=== PATIENT | male | born 1930 | race Caucasian/White ===

== ENCOUNTER 2019-09-21 12:11 | Outpatient (CLI) | payer MEDICARE ==
--- NOTE | 2019-09-21 14:02 | CT ---
CT chest noncontrast HISTORY: Asthma stenosis. Dyspnea. FINDINGS: Scattered mild areas of dystrophic calcifications associated with the pleura of each hemith orax. Mild peripheral interstitial thickening. No lobar consolidation or pleural fluid. Centered within the lateral aspect of the right upper lobe is an oval soft tissue density mass with s ubtle spiculated periphery. It measures up to 1.3 cm x 1.0 cm greatest diameters on the axial images. Within the superior segment right lower lobe, an oval 0.8 cm noncalcified nodule is present. Lack of contrast limits evaluation of the soft tissues. There is calcification within the coronary ar teries and other arterial structures. Nonenlarged, 1.6 cm precarinal lymph node is apparent. Inferior most images show calcified granulomata of the spleen. Small cyst in the left liver lobe. Hyp erdense stones in the dependent portion of the gallbladder lumen. IMPRESSION: Right lung nodules, measuring up to 1.3 cm greatest diameter. Metastatic disease is suspe cted. Lesions could be evaluated with radionucleotide PET scan hypermetabolic activity. Asbestos related pleural disease. Atherosclerosis. Cholelithiasis.
== END 2019-09-21 12:12 | disposition home or self-care (01) ==
LOC: BICCT 12:11
PROVIDERS: ATTEND Family Medicine
DX: I25.10 Atherosclerotic heart disease of native coronary artery without angina pectoris (principal); R09.89 Other specified symptoms and signs involving the circulatory and respiratory systems; I25.5 Ischemic cardiomyopathy; R91.8 Other nonspecific abnormal finding of lung field; K80.20 Calculus of gallbladder without cholecystitis without obstruction; J92.0 Pleural plaque with presence of asbestos
CPT/HCPCS: 71250

== ENCOUNTER 2020-01-26 08:50 | Outpatient (CLI) | payer MEDICARE ==
--- NOTE | 2020-01-26 10:33 | CT ---
CT THORAX NONCONTRAST: DATE: 01/26/2020 HISTORY: 89-year-old male follow-up pulmonary nodules. COMPARISON: 09/21/2019 FINDINGS: The 0.7 x 0.2 x 0.5 cm noncalcified pulmonary nodule in the superior segment of the right lower lobe, is demonstrated on sagittal reconstructions to have a craniocaudally flattened configuration, and is apparently along an accessory fissure (sagittal image 79 of 105, series 6; axial image 67 of 167, series 3), consistent with a benign fissural pulmonary lymph node. In the anterior segment of the right upper lobe, the approximately 1 x 1 x 1.3 cm noncalcified pulmon jeffrey nodule with irregular margins, is unchanged. No new pulmonary nodules. Scattered chronic mild-moderate subpleural reticular densities throughout the upper, mid, and lower l alexander zones. Multiple calcified pleural plaques bilaterally due to prior asbestos exposure. No consolidation, pulm onary edema, or pneumothorax. Trachea and bilateral major bronchi are diffusely mildly ectatic. 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 Mildly elevated right hemidiaphragm. Moderately low attenuation 1.5 x 1 cm hepatic lesion in left lobe of liver, unchanged. 4 cm round exophytic cystic lesion protruding from upper pole of right kidney. This was not included on previous CT. Otherwise no interval change overall. Coronary atherosclerotic disease due to calcified coronary lesion. No thoracic aortic aneurysm. Nonspecific mildly enlarged mediastinal lymph nodes. IMPRESSION: 1) the lobular 13 mm right upper lobe pulmonary nodule is unchanged since 09/21/2019. Primary lung can cer is a possibility. Recommend PET scan. 2) the 7 mm pulmonary nodule in the superior segment of the right lower lobe is a benign intrapulmona ry lymph node. 3) asbestos related pleural disease
== END 2020-01-26 08:51 | disposition home or self-care (01) ==
LOC: BICCT 08:50
PROVIDERS: ATTEND Internal Medicine Critical Care Medicine
DX: R91.1 Solitary pulmonary nodule (principal); J61 Pneumoconiosis due to asbestos and other mineral fibers
CPT/HCPCS: 71250

== ENCOUNTER 2020-07-21 08:56 | Emergency (ER) | payer MEDICARE ==
[2020-07-21] MEDS ORDERED: Boostrix 0.5 ML (Tdap) VIAL ONE (09:28)
--- NOTE | 2020-07-21 10:01 | CT ---
CT BRAIN WITHOUT CONTRAST: Date: 07/21/2020 HISTORY: Fall. Headache. FINDINGS: There are no previous exams for comparison. There are changes of cortical atrophy and chronic small vessel ischemic disease. The ventricular size is appropriate and the basilar cisterns are patent. No evidence of acute infarct, hemorrhage, midlin e shift, or abnormal extra-axial fluid collections are seen. The bony calvarium is intact. The visual ized paranasal sinuses and mastoid air cells are well aerated. There is a soft tissue scalp contusion in the left frontoparietal region. IMPRESSION: No CT evidence of acute intracranial process. POS: [facility]
== END 2020-07-21 12:03 | disposition home or self-care (01) ==
LOC: ERS 08:56
DX: S51.012A Laceration without foreign body of left elbow, initial encounter (principal); S00.03XA Contusion of scalp, initial encounter; E78.5 Hyperlipidemia, unspecified; I10 Essential (primary) hypertension; W18.30XA Fall on same level, unspecified, initial encounter
CPT/HCPCS: 70450; 90471; 90715

== ENCOUNTER 2020-08-01 10:21 | Outpatient (CLI) | payer MEDICARE ==
--- NOTE | 2020-08-01 11:34 | CT ---
Chest CT without contrast: 08/01/2020 COMPARISON: 01/26/2020 and 09/21/2019 HISTORY: Reevaluate pulmonary nodule TECHNIQUE: Axial CT imaging at 3 mm intervals from the thoracic inlet through the upper abdomen witho ut contrast. Coronal and sagittal reformatted imaging obtained. FINDINGS: Evaluation of the vascular structures, imaged viscera, and for lymphadenopathy is limited o n noncontrast enhanced imaging. Stable partially imaged cyst emanating from upper pole of the right kidney noted measuring at least 3 .8 cm. The imaged upper abdominal aorta demonstrate scattered atherosclerotic calcification. Granulomatous calcifications of the visualized spleen noted. There is a stable small low-density lesi on within the anterior aspect of the left lobe of the liver measuring 1.6 cm, likely representing a small cyst. There is no pleural, pericardial, or mediastinal fluid present. Transvenous pacing leads are noted bilaterally. Scattered partially calcified posterior pleural plaques noted within the bilateral lower lobes, left greater than right, consistent with asbestos-related pleural disease. There are a few additional calcified pleural plaques anteriorly on the right. Increased linear interstitial density with subpleural cystic change noted anteriorly and medially wit hin the mid left upper lobe, stable. There is a mass within the right upper lobe on axial image 59 of soft tissue density which measures 1 .3 cm in transverse dimension, 1 cm in AP dimension, and 9 mm in craniocaudal dimension, demonstrating no significant change when compared to the prior study performed 09/21/2019. Peripheral linear increased interstitial density noted within the right middle lobe and the inferior posterior right lower lobe. There is a nodule within the right lower lobe posteriorly on axial image 69 measuring approximately 8 mm in AP dimension, unchanged as well when compared to the 09/21/19 exam. No new pulmonary nodule appreciated on either side. Review of the osseous structures demonstrates stable scattered areas of degenerative change within th e imaged spine. No worrisome lytic or blastic bone lesions. IMPRESSION: Stable right-sided pulmonary nodules measuring up to 1.4 cm within the right upper lobe. Continued follow-up is suggested as primary lung cancer cannot be excluded. A PET/CT could definitively evaluate this lesion given size.
== END 2020-08-01 10:22 | disposition home or self-care (01) ==
LOC: BICCT 10:21
PROVIDERS: ATTEND Internal Medicine Critical Care Medicine
DX: R91.8 Other nonspecific abnormal finding of lung field (principal)
CPT/HCPCS: 71250

== ENCOUNTER 2020-11-13 08:07 | Emergency (ER) | payer MEDICARE ==
[2020-11-13 08:57] LABS: #Basophils 0.1 thou/uL (0.0-0.2); #Eosinphils 0.2 thou/uL (0.0-0.7); #Lymphocytes 1.1 thou/uL (1.20-3.40); #Monocytes 0.6 thou/uL (0.11-0.59); #Neutrophils 3.2 thou/uL (1.40-6.50); %Basophils 1.3 % (0.0-1.0); %Eosinophils 4.2 % (0.0-10.0); %Monocytes 12.2 % (0.0-10.0); %Neutrophils 61.3 % (42.0-75.0); Hemoglobin 13.7 g/dL (14.0-18.0); Mean Corpuscular HGB CONC 32.1 g/dL (32.0-36.0); Mean Corpuscular Hemoglobin 30.3 pg (27.0-31.0); Mean Corpuscular Volume 94.5 fL (78.0-98.0); Mean Platelet Volume 8.8 fL (7.4-10.4); Platelet Count 176 thou/uL (130-400); RBC Distribution Width 12.6 % (11.5-14.5); Red Blood Cell (RBC) Count 4.51 mill/uL (4.70-6.10); White Blood Cell (WBC) Count 5.3 thou/uL (4.8-10.8)
[2020-11-13 09:23] LABS: ALT (SGPT) 22 U/L (8-55); AST (SGOT) 30 U/L (5-34); Albumin 3.9 g/dL (3.4-4.8); Alkaline Phosphatase 66 U/L (40-110); Anion Gap 12 mmol/L (10-20); BUN (Urea Nitrogen) 18 mg/dL (8.4-25.7); Bilirubin, Total 1.4 mg/dL (0.2-1.2); Calc. Creatinine Clearance 0 mL/min (70-130); Calcium 9.6 mg/dL (7.8-10.44); Carbon Dioxide 26 mmol/L (23-31); Chloride 101 mmol/L (98-107); Globulin 2.8 g/dL (2.4-3.5); Glucose 90 mg/dL (83-110); Potassium 3.4 mmol/L (3.5-5.1); Protein, Total 6.7 g/dL (5.8-8.1); Sodium 136 mmol/L (136-145)
[2020-11-13] MEDS ORDERED: Furosemide 20 MG/2 ML VIAL ONE (09:48)
== END 2020-11-13 11:32 | disposition home or self-care (01) ==
LOC: ERS 08:07
DX: I11.0 Hypertensive heart disease with heart failure (principal); I50.9 Heart failure, unspecified; E78.5 Hyperlipidemia, unspecified; Z79.01 Long term (current) use of anticoagulants; Z79.899 Other long term (current) drug therapy; Z79.82 Long term (current) use of aspirin
CPT/HCPCS: 36415; 71045; 80053; 83880; 85025; 93005; 94760; 96374; J1940

== ENCOUNTER 2020-11-20 10:18 | Inpatient (IN) | payer MEDICARE ==
[2020-11-20 11:10] LABS: #Monocytes 1.3 thou/uL (0.11-0.59); #Neutrophils 8.3 thou/uL (1.40-6.50); %Eosinophils 0.4 % (0.0-10.0); %Monocytes 11.8 % (0.0-10.0); %Neutrophils 78.7 % (42.0-75.0); Hemoglobin 15.5 g/dL (14.0-18.0); Mean Corpuscular Hemoglobin 30.3 pg (27.0-31.0); Mean Corpuscular Volume 91.7 fL (78.0-98.0); Mean Platelet Volume 8.8 fL (7.4-10.4); Platelet Count 217 thou/uL (130-400); RBC Distribution Width 12.7 % (11.5-14.5); Red Blood Cell (RBC) Count 5.12 mill/uL (4.70-6.10); White Blood Cell (WBC) Count 10.6 thou/uL (4.8-10.8)
[2020-11-20 11:24] LABS: ALT (SGPT) 29 U/L (8-55); AST (SGOT) 39 U/L (5-34); Albumin 4.1 g/dL (3.4-4.8); Alkaline Phosphatase 69 U/L (40-110); Anion Gap 15 mmol/L (10-20); BUN (Urea Nitrogen) 22 mg/dL (8.4-25.7); Bilirubin, Total 2.4 mg/dL (0.2-1.2); Calc. Creatinine Clearance 0 mL/min (70-130); Calcium 10.4 mg/dL (7.8-10.44); Carbon Dioxide 33 mmol/L (23-31); Chloride 82 mmol/L (98-107); Globulin 2.8 g/dL (2.4-3.5); Glucose 137 mg/dL (83-110); Lipase 173 U/L (8-78); Magnesium 1.6 mg/dL (1.6-2.6); Protein, Total 6.9 g/dL (5.8-8.1); Sodium 127 mmol/L (136-145)
[2020-11-20 11:29] LABS: Potassium 2.6 mmol/L (3.5-5.1)
[2020-11-20 11:41] LABS: Bilirubin Negative (Negative); Blood, Urine Negative (Negative); Clarity Clear (Clear); Glucose, Urine (Dipstick) Normal (Negative); Ketone, Urine 10 mg/dL (Negative); Leukocyte Negative Leu/uL (Negative); Nitrite Negative (Negative); Protein, Urine (Dipstick) 20 mg/dL (Neg-Trace); Specific Gravity, Urine 1.019 (1.002-1.036); Urobilinogen Normal mg/dL (Less than 2); pH, Urine 6.5 (5.0-9.0)
[2020-11-20] MEDS ORDERED: Potassium Chloride 20 MEQ TAB ONE (11:50)
[2020-11-20] MEDS ORDERED: Magnesium 2 GM/50 ML BAG (IN WATER) ONE (11:50)
[2020-11-20] MEDS ORDERED: Calcium Carbonate 500 MG ChewTAB PO PRN (12:06)
[2020-11-20] MEDS ORDERED: Ondansetron PF 4 MG/2 ML Vial IVP PRN (12:06)
[2020-11-20] MEDS ORDERED: HYDROcodone/Acetaminophen 5/325 mg Tablet PO PRN (12:06)
[2020-11-20 12:14] LABS: Troponin I 0.015 ng/mL (< 0.028)
[2020-11-20 15:28] LABS: Anion Gap 14 mmol/L (10-20); BUN (Urea Nitrogen) 19 mg/dL (8.4-25.7); Calc. Creatinine Clearance 0 mL/min (70-130); Calcium 9.8 mg/dL (7.8-10.44); Carbon Dioxide 33 mmol/L (23-31); Chloride 85 mmol/L (98-107); Glucose 111 mg/dL (83-110); Magnesium 2.2 mg/dL (1.6-2.6); Sodium 129 mmol/L (136-145)
[2020-11-20 15:31] LABS: Potassium 2.8 mmol/L (3.5-5.1)
[2020-11-20 15:32] LABS: Troponin I 0.028 ng/mL (< 0.028)
[2020-11-20] MEDS ORDERED: Potassium Chloride 40 MEQ in Sodium Chloride 0.9% 250 ML 250 ML IVPB SCH (15:45)
[2020-11-20 18:22] LABS: Troponin I 0.029 ng/mL (< 0.028)
[2020-11-20 18:30] LABS: SARS-CoV-2 PCR by NAA Not Detected (NotDetected)
[2020-11-20] MEDS: Acetaminophen 325 MG TAB PO PRN (21:07)
[2020-11-21] MEDS ORDERED: Loratadine 10 MG TAB PO PRN (03:34)
[2020-11-21 05:55] LABS: Anion Gap 12 mmol/L (10-20); BUN (Urea Nitrogen) 15 mg/dL (8.4-25.7); Calc. Creatinine Clearance 68 mL/min (70-130); Calcium 9.8 mg/dL (7.8-10.44); Carbon Dioxide 34 mmol/L (23-31); Chloride 89 mmol/L (98-107); Glucose 90 mg/dL (83-110); Magnesium 1.8 mg/dL (1.6-2.6); Potassium 3.1 mmol/L (3.5-5.1); Sodium 132 mmol/L (136-145)
[2020-11-21 06:36] LABS: Hemoglobin 14.9 g/dL (14.0-18.0); Mean Corpuscular HGB CONC 32.8 g/dL (32.0-36.0); Mean Corpuscular Hemoglobin 30.6 pg (27.0-31.0); Mean Corpuscular Volume 93.3 fL (78.0-98.0); Mean Platelet Volume 8.5 fL (7.4-10.4); Platelet Count 183 thou/uL (130-400); RBC Distribution Width 12.6 % (11.5-14.5); Red Blood Cell (RBC) Count 4.86 mill/uL (4.70-6.10); White Blood Cell (WBC) Count 8.8 thou/uL (4.8-10.8)
[2020-11-21 06:37] LABS: Band 9 % (5-11); Eosinophils 2 % (0-10); Lymphocytes 9 % (21-51); MDiff Complete? YES; Monocytes 11 % (0-10); Neutrophil 69 % (42-75)
[2020-11-21] MEDS: Carvedilol 6.25 MG TAB PO SCH ×2 (08:08→21:01)
[2020-11-21] MEDS: Aspirin 81 mg Enteric Coated Tablet PO SCH (08:08)
[2020-11-21] MEDS: Apixaban 5 MG TAB PO SCH ×2 (08:08→21:02)
[2020-11-21] MEDS ORDERED: Magnesium 2 GM/50 ML 2 GM in Premix Bag 1 BAG IVPB SCH (08:30)
[2020-11-21] MEDS: Amlodipine 10 MG TAB PO SCH (11:11)
[2020-11-21] MEDS: Losartan 25 MG TAB PO SCH (11:12)
[2020-11-21] MEDS: Potassium Chloride 20 MEQ in Premix Bag 1 BAG IVPB SCH ×2 (11:13→17:56)
[2020-11-21] MEDS ORDERED: Sodium Chloride 0.9% 1,000 ML IV SCH (12:00)
[2020-11-21] MEDS: Ezetimibe 10 MG TAB PO SCH (21:01)
[2020-11-22 05:40] LABS: Hemoglobin 15.7 g/dL (14.0-18.0); Mean Corpuscular HGB CONC 31.7 g/dL (32.0-36.0); Mean Corpuscular Volume 94.6 fL (78.0-98.0); Platelet Count 194 thou/uL (130-400); RBC Distribution Width 12.7 % (11.5-14.5); Red Blood Cell (RBC) Count 5.22 mill/uL (4.70-6.10); White Blood Cell (WBC) Count 8.9 thou/uL (4.8-10.8)
[2020-11-22 05:57] LABS: Anion Gap 12 mmol/L (10-20); BUN (Urea Nitrogen) 20 mg/dL (8.4-25.7); Calc. Creatinine Clearance 66 mL/min (70-130); Calcium 10.1 mg/dL (7.8-10.44); Carbon Dioxide 35 mmol/L (23-31); Chloride 90 mmol/L (98-107); Glucose 89 mg/dL (83-110); Potassium 3.7 mmol/L (3.5-5.1); Sodium 133 mmol/L (136-145)
[2020-11-22 05:58] LABS: Band 1 % (5-11); Eosinophils 1 % (0-10); Lymphocytes 19 % (21-51); MDiff Complete? YES; Monocytes 13 % (0-10); Neutrophil 63 % (42-75); Reactive Lymphocytes 2 % (0-10)
[2020-11-22] MEDS: Apixaban 5 MG TAB PO SCH ×2 (08:22→20:41)
[2020-11-22] MEDS: Aspirin 81 mg Enteric Coated Tablet PO SCH (08:22)
[2020-11-22] MEDS: Losartan 25 MG TAB PO SCH (08:23)
[2020-11-22] MEDS: Ascorbic Acid 500 mg Chewable Tablet PO SCH (08:23)
[2020-11-22] MEDS: Cholecalciferol 1,000 UNITS (25 MCG) TAB PO SCH (08:23)
[2020-11-22] MEDS: Carvedilol 6.25 MG TAB PO SCH ×2 (08:24→20:41)
[2020-11-22] MEDS: Amlodipine 10 MG TAB PO SCH (08:24)
[2020-11-22] MEDS: Magnesium Oxide 400 MG TAB PO SCH (08:24)
[2020-11-22 18:27] VITALS: BMI 24.3
[2020-11-22] MEDS: Ezetimibe 10 MG TAB PO SCH (20:41)
[2020-11-22] MEDS: Acetaminophen 325 MG TAB PO PRN (21:26)
[2020-11-23] MEDS: Carvedilol 6.25 MG TAB PO SCH ×2 (09:40→21:55)
[2020-11-23] MEDS: Cholecalciferol 1,000 UNITS (25 MCG) TAB PO SCH (09:40)
[2020-11-23] MEDS: Apixaban 5 MG TAB PO SCH ×2 (09:40→21:55)
[2020-11-23] MEDS: Ascorbic Acid 500 mg Chewable Tablet PO SCH (09:40)
[2020-11-23] MEDS: Magnesium Oxide 400 MG TAB PO SCH (09:40)
[2020-11-23] MEDS: Aspirin 81 mg Enteric Coated Tablet PO SCH (09:40)
[2020-11-23] MEDS: Melatonin 3 MG TAB PO PRN (21:55)
[2020-11-23] MEDS: Ezetimibe 10 MG TAB PO SCH (21:55)
[2020-11-24] MEDS: Acetaminophen 325 MG TAB PO PRN (00:47)
[2020-11-24 05:10] LABS: #Basophils 0.1 thou/uL (0.0-0.2); #Eosinphils 0.5 thou/uL (0.0-0.7); #Lymphocytes 1.5 thou/uL (1.20-3.40); #Monocytes 1.2 thou/uL (0.11-0.59); #Neutrophils 5.5 thou/uL (1.40-6.50); %Basophils 0.9 % (0.0-1.0); %Lymphocytes 17.6 % (21.0-51.0); %Monocytes 13.2 % (0.0-10.0); %Neutrophils 62.3 % (42.0-75.0); Hemoglobin 14.5 g/dL (14.0-18.0); Mean Corpuscular HGB CONC 33.9 g/dL (32.0-36.0); Mean Corpuscular Hemoglobin 32.1 pg (27.0-31.0); Mean Corpuscular Volume 94.8 fL (78.0-98.0); Mean Platelet Volume 8.7 fL (7.4-10.4); Platelet Count 196 thou/uL (130-400); RBC Distribution Width 12.9 % (11.5-14.5); Red Blood Cell (RBC) Count 4.53 mill/uL (4.70-6.10); White Blood Cell (WBC) Count 8.8 thou/uL (4.8-10.8)
[2020-11-24 05:30] LABS: Anion Gap 13 mmol/L (10-20); BUN (Urea Nitrogen) 21 mg/dL (8.4-25.7); Calc. Creatinine Clearance 65 mL/min (70-130); Carbon Dioxide 33 mmol/L (23-31); Chloride 93 mmol/L (98-107); Glucose 116 mg/dL (83-110); Potassium 3.6 mmol/L (3.5-5.1); Sodium 135 mmol/L (136-145)
[2020-11-24] MEDS: Cholecalciferol 1,000 UNITS (25 MCG) TAB PO SCH (08:12)
[2020-11-24] MEDS: Aspirin 81 mg Enteric Coated Tablet PO SCH (08:12)
[2020-11-24] MEDS: Ascorbic Acid 500 mg Chewable Tablet PO SCH (08:12)
[2020-11-24] MEDS: Magnesium Oxide 400 MG TAB PO SCH (08:12)
[2020-11-24] MEDS: Apixaban 5 MG TAB PO SCH ×2 (08:12→21:46)
[2020-11-24] MEDS: Carvedilol 6.25 MG TAB PO SCH ×2 (08:12→21:46)
[2020-11-24] MEDS ORDERED: Furosemide 20 MG/2 ML VIAL SLOW IVP SCH (11:30)
[2020-11-24] MEDS ORDERED: Gabapentin 100 MG CAP PO SCH (13:45)
[2020-11-24] MEDS: Gabapentin 100 MG CAP PO SCH ×2 (14:20→21:46)
[2020-11-24] MEDS: Ezetimibe 10 MG TAB PO SCH (21:46)
[2020-11-24] MEDS: Melatonin 3 MG TAB PO PRN (22:12)
[2020-11-25 04:42] LABS: #Basophils 0.1 thou/uL (0.0-0.2); #Eosinphils 0.5 thou/uL (0.0-0.7); #Lymphocytes 1.6 thou/uL (1.20-3.40); #Monocytes 1.1 thou/uL (0.11-0.59); #Neutrophils 4.2 thou/uL (1.40-6.50); %Basophils 1.1 % (0.0-1.0); %Eosinophils 6.3 % (0.0-10.0); %Lymphocytes 21.8 % (21.0-51.0); %Monocytes 14.4 % (0.0-10.0); %Neutrophils 56.5 % (42.0-75.0); Hemoglobin 13.4 g/dL (14.0-18.0); Mean Corpuscular HGB CONC 32.4 g/dL (32.0-36.0); Mean Corpuscular Hemoglobin 30.5 pg (27.0-31.0); Mean Corpuscular Volume 94.3 fL (78.0-98.0); Mean Platelet Volume 8.9 fL (7.4-10.4); Platelet Count 195 thou/uL (130-400); RBC Distribution Width 12.7 % (11.5-14.5); Red Blood Cell (RBC) Count 4.39 mill/uL (4.70-6.10); White Blood Cell (WBC) Count 7.5 thou/uL (4.8-10.8)
[2020-11-25 05:06] LABS: Anion Gap 10 mmol/L (10-20); BUN (Urea Nitrogen) 16 mg/dL (8.4-25.7); Calc. Creatinine Clearance 73 mL/min (70-130); Calcium 9.5 mg/dL (7.8-10.44); Carbon Dioxide 33 mmol/L (23-31); Chloride 94 mmol/L (98-107); Glucose 85 mg/dL (83-110); Magnesium 1.7 mg/dL (1.6-2.6); Sodium 134 mmol/L (136-145)
[2020-11-25] MEDS: Aspirin 81 mg Enteric Coated Tablet PO SCH (08:10)
[2020-11-25] MEDS: Gabapentin 100 MG CAP PO SCH ×3 (08:10→20:56)
[2020-11-25] MEDS: Ascorbic Acid 500 mg Chewable Tablet PO SCH (08:11)
[2020-11-25] MEDS: Cholecalciferol 1,000 UNITS (25 MCG) TAB PO SCH (08:11)
[2020-11-25] MEDS: Carvedilol 6.25 MG TAB PO SCH ×2 (08:11→20:57)
[2020-11-25] MEDS: Magnesium Oxide 400 MG TAB PO SCH (08:11)
[2020-11-25] MEDS: Apixaban 5 MG TAB PO SCH ×2 (08:11→20:56)
[2020-11-25] MEDS ORDERED: Furosemide 40 MG/4 ML VIAL SLOW IVP SCH (14:30)
[2020-11-25] MEDS: Potassium Chloride 20 MEQ TAB PO SCH ×2 (15:29→20:55)
[2020-11-25] MEDS: Fluticasone Propionate Nasal Spray 16 gm Bottle NASAL SCH (17:24)
[2020-11-25] MEDS: Ezetimibe 10 MG TAB PO SCH (20:56)
[2020-11-26] MEDS: Potassium Chloride 20 MEQ TAB PO SCH ×2 (02:36→09:00)
[2020-11-26] MEDS: Acetaminophen 325 MG TAB PO PRN ×2 (04:52→20:29)
[2020-11-26 04:57] LABS: #Basophils 0.1 thou/uL (0.0-0.2); #Eosinphils 0.3 thou/uL (0.0-0.7); #Lymphocytes 1.5 thou/uL (1.20-3.40); #Monocytes 0.9 thou/uL (0.11-0.59); #Neutrophils 5.8 thou/uL (1.40-6.50); %Basophils 0.8 % (0.0-1.0); %Eosinophils 3.4 % (0.0-10.0); %Lymphocytes 17.2 % (21.0-51.0); %Monocytes 10.9 % (0.0-10.0); %Neutrophils 67.6 % (42.0-75.0); Hemoglobin 13.9 g/dL (14.0-18.0); Mean Corpuscular HGB CONC 32.7 g/dL (32.0-36.0); Mean Corpuscular Hemoglobin 30.9 pg (27.0-31.0); Mean Corpuscular Volume 94.5 fL (78.0-98.0); Mean Platelet Volume 8.9 fL (7.4-10.4); Platelet Count 192 thou/uL (130-400); RBC Distribution Width 12.7 % (11.5-14.5); Red Blood Cell (RBC) Count 4.49 mill/uL (4.70-6.10); White Blood Cell (WBC) Count 8.6 thou/uL (4.8-10.8)
[2020-11-26 05:22] LABS: Anion Gap 11 mmol/L (10-20); BUN (Urea Nitrogen) 17 mg/dL (8.4-25.7); Calc. Creatinine Clearance 63 mL/min (70-130); Calcium 9.3 mg/dL (7.8-10.44); Carbon Dioxide 32 mmol/L (23-31); Chloride 95 mmol/L (98-107); Glucose 110 mg/dL (83-110); Potassium 4.2 mmol/L (3.5-5.1); Sodium 134 mmol/L (136-145)
[2020-11-26] MEDS: Apixaban 5 MG TAB PO SCH ×2 (09:00→20:29)
[2020-11-26] MEDS: Ascorbic Acid 500 mg Chewable Tablet PO SCH (09:00)
[2020-11-26] MEDS: Cholecalciferol 1,000 UNITS (25 MCG) TAB PO SCH (09:01)
[2020-11-26] MEDS: Fluticasone Propionate Nasal Spray 16 gm Bottle NASAL SCH ×2 (09:01→20:30)
[2020-11-26] MEDS: Aspirin 81 mg Enteric Coated Tablet PO SCH (09:01)
[2020-11-26] MEDS: Magnesium Oxide 400 MG TAB PO SCH (09:02)
[2020-11-26] MEDS: Gabapentin 100 MG CAP PO SCH ×3 (09:02→20:29)
[2020-11-26] MEDS: Carvedilol 6.25 MG TAB PO SCH ×2 (11:17→20:29)
[2020-11-26] MEDS: Ezetimibe 10 MG TAB PO SCH (20:29)
[2020-11-27] MEDS: Fluticasone Propionate Nasal Spray 16 gm Bottle NASAL SCH ×2 (09:30→21:36)
[2020-11-27] MEDS: Apixaban 5 MG TAB PO SCH ×2 (09:31→21:34)
[2020-11-27] MEDS: Cholecalciferol 1,000 UNITS (25 MCG) TAB PO SCH (09:31)
[2020-11-27] MEDS: Ascorbic Acid 500 mg Chewable Tablet PO SCH (09:31)
[2020-11-27] MEDS: Magnesium Oxide 400 MG TAB PO SCH (09:31)
[2020-11-27] MEDS: Aspirin 81 mg Enteric Coated Tablet PO SCH (09:31)
[2020-11-27] MEDS: Gabapentin 100 MG CAP PO SCH ×3 (09:32→21:34)
[2020-11-27] MEDS: Carvedilol 6.25 MG TAB PO SCH ×2 (09:33→21:34)
[2020-11-27] MEDS: Ezetimibe 10 MG TAB PO SCH (21:34)
[2020-11-27] MEDS: Melatonin 3 MG TAB PO PRN (21:35)
[2020-11-28] MEDS: Carvedilol 6.25 MG TAB PO SCH (09:05)
[2020-11-28] MEDS: Aspirin 81 mg Enteric Coated Tablet PO SCH (09:05)
[2020-11-28] MEDS: Gabapentin 100 MG CAP PO SCH ×2 (09:05→14:27)
[2020-11-28] MEDS: Apixaban 5 MG TAB PO SCH (09:06)
[2020-11-28] MEDS: Magnesium Oxide 400 MG TAB PO SCH (09:06)
[2020-11-28] MEDS: Ascorbic Acid 500 mg Chewable Tablet PO SCH (09:06)
[2020-11-28] MEDS: Cholecalciferol 1,000 UNITS (25 MCG) TAB PO SCH (09:06)
[2020-11-28] MEDS: Fluticasone Propionate Nasal Spray 16 gm Bottle NASAL SCH (09:07)
[2020-11-28 13:01] VITALS: BP 139/66; TEMP 97.7
== END 2020-11-28 14:35 | disposition home or self-care (01) | DRG 641 ==
LOC: ERS 10:18 → 2SW 11:54 → OBSVTOIN 11:54 → 2NO 11-24 16:09 → ONC 11-27 18:15
PROVIDERS: ADMIT Family Medicine; ATTEND Internal Medicine
DX: E87.1 Hypo-osmolality and hyponatremia (principal); I48.21 Permanent atrial fibrillation; Z20.822 Contact with and (suspected) exposure to COVID-19; E78.5 Hyperlipidemia, unspecified; I50.9 Heart failure, unspecified; E83.42 Hypomagnesemia; E86.0 Dehydration; I11.0 Hypertensive heart disease with heart failure; I48.0 Paroxysmal atrial fibrillation; E87.6 Hypokalemia; R63.6 Underweight; Z95.0 Presence of cardiac pacemaker; Z88.2 Allergy status to sulfonamides; Z88.8 Allergy status to other drugs, medicaments and biological substances; Z79.82 Long term (current) use of aspirin; Z79.01 Long term (current) use of anticoagulants; Z79.899 Other long term (current) drug therapy; Z68.24 Body mass index [BMI] 24.0-24.9, adult
CPT/HCPCS: 36415; 71045; 74177; 80048; 80053; 81003; 83605; 83690; 83735; 83880; 84484; 85007; 85025; 85027; 87635; 93005; 93306; 96365; 96366; 96367; 96376; G0378; J1940; J3475; J3480; J7030; J7050; U0003; U0005

== ENCOUNTER 2020-12-06 12:53 | Outpatient (CLI) | payer MEDICARE | END 2020-12-06 12:54 | disposition home or self-care (01) | LOC: BICRAD 12:53 | PROVIDERS: ATTEND Family Medicine | DX: M47.816 Spondylosis without myelopathy or radiculopathy, lumbar region (principal); W19.XXXD Unspecified fall, subsequent encounter | CPT/HCPCS: 72100 ==

== ENCOUNTER 2020-12-14 16:06 | Inpatient (IN) | payer MEDICARE ==
[2020-12-14 16:28] LABS: #Eosinphils 0.1 thou/uL (0.0-0.7); #Monocytes 0.7 thou/uL (0.11-0.59); #Neutrophils 4.3 thou/uL (1.40-6.50); %Basophils 0.6 % (0.0-1.0); %Eosinophils 0.9 % (0.0-10.0); %Lymphocytes 15.8 % (21.0-51.0); %Monocytes 11.8 % (0.0-10.0); %Neutrophils 70.8 % (42.0-75.0); Mean Corpuscular HGB CONC 32.3 g/dL (32.0-36.0); Mean Platelet Volume 8.6 fL (7.4-10.4); Platelet Count 204 thou/uL (130-400); RBC Distribution Width 13.8 % (11.5-14.5); Red Blood Cell (RBC) Count 4.83 mill/uL (4.70-6.10); White Blood Cell (WBC) Count 6.1 thou/uL (4.8-10.8)
[2020-12-14 16:48] LABS: ALT (SGPT) 39 U/L (8-55); AST (SGOT) 44 U/L (5-34); Albumin 3.7 g/dL (3.4-4.8); Alkaline Phosphatase 104 U/L (40-110); Anion Gap 13 mmol/L (10-20); BUN (Urea Nitrogen) 25 mg/dL (8.4-25.7); Bilirubin, Total 1.6 mg/dL (0.2-1.2); Calc. Creatinine Clearance 0 mL/min (70-130); Calcium 9.4 mg/dL (7.8-10.44); Carbon Dioxide 29 mmol/L (23-31); Chloride 95 mmol/L (98-107); Globulin 2.4 g/dL (2.4-3.5); Glucose 113 mg/dL (83-110); Lipase 24 U/L (8-78); Potassium 4.4 mmol/L (3.5-5.1); Protein, Total 6.1 g/dL (5.8-8.1); Sodium 133 mmol/L (136-145)
[2020-12-14] MEDS ORDERED: Furosemide 40 MG/4 ML VIAL ONE (17:48)
[2020-12-14] MEDS ORDERED: Ondansetron ODT 4 MG TAB SL PRN (21:00)
[2020-12-14] MEDS ORDERED: Acetaminophen 325 MG TAB PO PRN ×2 (21:00→22:32)
[2020-12-14] MEDS ORDERED: Ondansetron PF 4 MG/2 ML Vial IVP PRN ×2 (21:00→22:32)
[2020-12-14] MEDS ORDERED: Nitroglycerin 0.4 MG TAB (25 Tab Bottle) SL PRN (22:35)
[2020-12-15 01:05] LABS: SARS-CoV-2 NAA Rapid Test Not Detected (NotDetected)
[2020-12-15] MEDS ORDERED: Furosemide 40 MG/4 ML VIAL SLOW IVP SCH (02:00)
[2020-12-15 04:37] LABS: #Basophils 0.1 thou/uL (0.0-0.2); #Eosinphils 0.1 thou/uL (0.0-0.7); #Lymphocytes 1.1 thou/uL (1.20-3.40); #Neutrophils 4.6 thou/uL (1.40-6.50); %Basophils 0.7 % (0.0-1.0); %Lymphocytes 15.8 % (21.0-51.0); %Monocytes 14.3 % (0.0-10.0); %Neutrophils 67.2 % (42.0-75.0); Hemoglobin 14.4 g/dL (14.0-18.0); Mean Corpuscular HGB CONC 33.7 g/dL (32.0-36.0); Mean Corpuscular Hemoglobin 31.9 pg (27.0-31.0); Mean Corpuscular Volume 94.8 fL (78.0-98.0); Mean Platelet Volume 8.8 fL (7.4-10.4); Platelet Count 181 thou/uL (130-400); RBC Distribution Width 13.9 % (11.5-14.5); Red Blood Cell (RBC) Count 4.51 mill/uL (4.70-6.10); White Blood Cell (WBC) Count 6.8 thou/uL (4.8-10.8)
[2020-12-15 05:07] LABS: Anion Gap 10 mmol/L (10-20); BUN (Urea Nitrogen) 21 mg/dL (8.4-25.7); Calc. Creatinine Clearance 63 mL/min (70-130); Calcium 9.1 mg/dL (7.8-10.44); Carbon Dioxide 34 mmol/L (23-31); Chloride 96 mmol/L (98-107); Glucose 103 mg/dL (83-110); Magnesium 1.8 mg/dL (1.6-2.6); Potassium 3.1 mmol/L (3.5-5.1); Sodium 137 mmol/L (136-145)
[2020-12-15] MEDS: Furosemide 40 MG/4 ML VIAL SLOW IVP SCH ×2 (06:16→14:33)
[2020-12-15] MEDS: Ascorbic Acid 500 mg Chewable Tablet PO SCH (08:59)
[2020-12-15] MEDS ORDERED: Ubidecarenone 50 MG CAP PO SCH (09:00)
[2020-12-15] MEDS ORDERED: Fish Oil 1,000 MG CAP PO SCH (09:00)
[2020-12-15] MEDS ORDERED: Gabapentin 100 MG CAP PO SCH (09:00)
[2020-12-15] MEDS: Cholecalciferol 1,000 UNITS (25 MCG) TAB PO SCH (09:00)
[2020-12-15] MEDS ORDERED: Potassium Chloride 8 MEQ TAB PO SCH (09:00)
[2020-12-15] MEDS: Aspirin 81 mg Enteric Coated Tablet PO SCH (09:01)
[2020-12-15] MEDS: Carvedilol 6.25 MG TAB PO SCH ×2 (09:01→21:12)
[2020-12-15] MEDS: Fish Oil 1,000 MG CAP PO SCH (09:12)
[2020-12-15] MEDS: Apixaban 5 MG TAB PO SCH ×2 (09:18→21:11)
[2020-12-15] MEDS: Pregabalin 50 MG CAP PO SCH ×2 (14:56→21:12)
[2020-12-15] MEDS: Amiodarone 200 MG TAB PO SCH (21:11)
[2020-12-15] MEDS: Ezetimibe 10 MG TAB PO SCH (21:12)
[2020-12-16 04:39] LABS: #Eosinphils 0.2 thou/uL (0.0-0.7); #Monocytes 0.9 thou/uL (0.11-0.59); #Neutrophils 4.4 thou/uL (1.40-6.50); %Basophils 0.5 % (0.0-1.0); %Eosinophils 3.7 % (0.0-10.0); %Lymphocytes 15.3 % (21.0-51.0); %Monocytes 13.4 % (0.0-10.0); %Neutrophils 67.2 % (42.0-75.0); Hemoglobin 14.8 g/dL (14.0-18.0); Mean Corpuscular HGB CONC 33.3 g/dL (32.0-36.0); Mean Corpuscular Hemoglobin 31.9 pg (27.0-31.0); Mean Corpuscular Volume 95.6 fL (78.0-98.0); Mean Platelet Volume 8.7 fL (7.4-10.4); Platelet Count 187 thou/uL (130-400); Red Blood Cell (RBC) Count 4.63 mill/uL (4.70-6.10); White Blood Cell (WBC) Count 6.6 thou/uL (4.8-10.8)
[2020-12-16 05:05] LABS: Anion Gap 11 mmol/L (10-20); BUN (Urea Nitrogen) 15 mg/dL (8.4-25.7); Calc. Creatinine Clearance 70 mL/min (70-130); Calcium 8.9 mg/dL (7.8-10.44); Carbon Dioxide 35 mmol/L (23-31); Chloride 95 mmol/L (98-107); Glucose 79 mg/dL (83-110); Magnesium 1.7 mg/dL (1.6-2.6); Sodium 138 mmol/L (136-145)
[2020-12-16] MEDS: Furosemide 40 MG/4 ML VIAL SLOW IVP SCH ×2 (05:21→15:19)
[2020-12-16] MEDS ORDERED: Potassium Chloride 20 MEQ TAB PO SCH ×2 (08:00→18:00)
[2020-12-16] MEDS: Fish Oil 1,000 MG CAP PO SCH (09:30)
[2020-12-16] MEDS: Ascorbic Acid 500 mg Chewable Tablet PO SCH (09:31)
[2020-12-16] MEDS: Pregabalin 50 MG CAP PO SCH ×3 (09:31→22:07)
[2020-12-16] MEDS: Carvedilol 6.25 MG TAB PO SCH ×2 (09:31→22:07)
[2020-12-16] MEDS: Cholecalciferol 1,000 UNITS (25 MCG) TAB PO SCH (09:31)
[2020-12-16] MEDS: Amiodarone 200 MG TAB PO SCH ×2 (09:32→22:06)
[2020-12-16] MEDS: Spironolactone 25 MG TAB PO SCH (09:32)
[2020-12-16] MEDS: Apixaban 5 MG TAB PO SCH ×2 (09:32→22:07)
[2020-12-16] MEDS: Aspirin 81 mg Enteric Coated Tablet PO SCH (09:33)
[2020-12-16] MEDS: Ezetimibe 10 MG TAB PO SCH (22:07)
[2020-12-17 05:06] LABS: #Eosinphils 0.2 thou/uL (0.0-0.7); #Lymphocytes 1.4 thou/uL (1.20-3.40); #Monocytes 0.9 thou/uL (0.11-0.59); #Neutrophils 3.7 thou/uL (1.40-6.50); %Basophils 0.5 % (0.0-1.0); %Eosinophils 3.5 % (0.0-10.0); %Monocytes 14.1 % (0.0-10.0); Hemoglobin 15.1 g/dL (14.0-18.0); Mean Corpuscular HGB CONC 32.8 g/dL (32.0-36.0); Mean Corpuscular Hemoglobin 31.4 pg (27.0-31.0); Mean Corpuscular Volume 95.7 fL (78.0-98.0); Mean Platelet Volume 8.8 fL (7.4-10.4); Platelet Count 191 thou/uL (130-400); RBC Distribution Width 13.9 % (11.5-14.5); Red Blood Cell (RBC) Count 4.79 mill/uL (4.70-6.10); White Blood Cell (WBC) Count 6.2 thou/uL (4.8-10.8)
[2020-12-17 05:40] LABS: Anion Gap 12 mmol/L (10-20); BUN (Urea Nitrogen) 15 mg/dL (8.4-25.7); Calc. Creatinine Clearance 71 mL/min (70-130); Calcium 8.9 mg/dL (7.8-10.44); Carbon Dioxide 34 mmol/L (23-31); Chloride 96 mmol/L (98-107); Glucose 99 mg/dL (83-110); Magnesium 1.6 mg/dL (1.6-2.6); Sodium 139 mmol/L (136-145)
[2020-12-17 05:42] LABS: Potassium 2.9 mmol/L (3.5-5.1)
[2020-12-17] MEDS ORDERED: Electrolyte Replacement Protocol 1 EACH FS PRN (05:54)
[2020-12-17] MEDS ORDERED: Magnesium 2 GM/50 ML 2 GM in Premix Bag 1 BAG IVPB SCH (06:15)
[2020-12-17] MEDS: Furosemide 40 MG/4 ML VIAL SLOW IVP SCH ×2 (06:40→15:46)
[2020-12-17] MEDS: Potassium Chloride 20 MEQ TAB PO SCH ×2 (06:40→09:56)
[2020-12-17] MEDS: Aspirin 81 mg Enteric Coated Tablet PO SCH (09:55)
[2020-12-17] MEDS: Ascorbic Acid 500 mg Chewable Tablet PO SCH (09:55)
[2020-12-17] MEDS: Pregabalin 50 MG CAP PO SCH ×3 (09:56→20:55)
[2020-12-17] MEDS: Fish Oil 1,000 MG CAP PO SCH (09:56)
[2020-12-17] MEDS: Apixaban 5 MG TAB PO SCH ×2 (09:57→20:55)
[2020-12-17] MEDS: Carvedilol 6.25 MG TAB PO SCH ×2 (09:57→20:55)
[2020-12-17] MEDS: Amiodarone 200 MG TAB PO SCH ×2 (09:57→20:54)
[2020-12-17] MEDS: Spironolactone 25 MG TAB PO SCH (09:58)
[2020-12-17] MEDS: Cholecalciferol 1,000 UNITS (25 MCG) TAB PO SCH (09:58)
[2020-12-17 15:12] LABS: Potassium 4.1 mmol/L (3.5-5.1)
[2020-12-17] MEDS: Ezetimibe 10 MG TAB PO SCH (20:55)
[2020-12-18 05:18] LABS: Anion Gap 12 mmol/L (10-20); BUN (Urea Nitrogen) 17 mg/dL (8.4-25.7); Calc. Creatinine Clearance 61 mL/min (70-130); Calcium 8.8 mg/dL (7.8-10.44); Carbon Dioxide 34 mmol/L (23-31); Chloride 94 mmol/L (98-107); Glucose 107 mg/dL (83-110); Magnesium 1.8 mg/dL (1.6-2.6); Potassium 3.7 mmol/L (3.5-5.1); Sodium 136 mmol/L (136-145)
[2020-12-18] MEDS: Carvedilol 6.25 MG TAB PO SCH ×2 (05:37→21:36)
[2020-12-18] MEDS: Furosemide 40 MG/4 ML VIAL SLOW IVP SCH ×2 (05:38→14:42)
[2020-12-18] MEDS ORDERED: Magnesium 2 GM/50 ML 2 GM in Premix Bag 1 BAG IVPB SCH (06:30)
[2020-12-18] MEDS ORDERED: PROPOFOL 20 ML ONE (07:24)
[2020-12-18] MEDS ORDERED: Ketamine 50 MG/ML (10ML VIAL) ONE (07:26)
[2020-12-18] MEDS: Spironolactone 25 MG TAB PO SCH (09:21)
[2020-12-18] MEDS: Apixaban 5 MG TAB PO SCH ×2 (09:23→21:27)
[2020-12-18] MEDS: Amiodarone 200 MG TAB PO SCH (09:23)
[2020-12-18] MEDS: Fish Oil 1,000 MG CAP PO SCH (09:24)
[2020-12-18] MEDS: Aspirin 81 mg Enteric Coated Tablet PO SCH (09:24)
[2020-12-18] MEDS: Cholecalciferol 1,000 UNITS (25 MCG) TAB PO SCH (09:24)
[2020-12-18] MEDS: Ascorbic Acid 500 mg Chewable Tablet PO SCH (09:24)
[2020-12-18] MEDS: Pregabalin 50 MG CAP PO SCH ×3 (09:25→21:27)
[2020-12-18] MEDS: Ezetimibe 10 MG TAB PO SCH (21:28)
[2020-12-19 04:50] LABS: Anion Gap 13 mmol/L (10-20); BUN (Urea Nitrogen) 21 mg/dL (8.4-25.7); Calc. Creatinine Clearance 55 mL/min (70-130); Carbon Dioxide 35 mmol/L (23-31); Chloride 92 mmol/L (98-107); Glucose 108 mg/dL (83-110); Potassium 4.3 mmol/L (3.5-5.1); Sodium 136 mmol/L (136-145)
[2020-12-19] MEDS: Apixaban 5 MG TAB PO SCH ×2 (08:55→20:29)
[2020-12-19] MEDS: Spironolactone 25 MG TAB PO SCH (08:55)
[2020-12-19] MEDS: Ascorbic Acid 500 mg Chewable Tablet PO SCH (08:55)
[2020-12-19] MEDS: Carvedilol 6.25 MG TAB PO SCH ×2 (08:56→20:28)
[2020-12-19] MEDS: Cholecalciferol 1,000 UNITS (25 MCG) TAB PO SCH (08:56)
[2020-12-19] MEDS: Pregabalin 50 MG CAP PO SCH ×3 (08:56→20:29)
[2020-12-19] MEDS: Fish Oil 1,000 MG CAP PO SCH (08:56)
[2020-12-19] MEDS: Aspirin 81 mg Enteric Coated Tablet PO SCH (08:56)
[2020-12-19] MEDS ORDERED: Amiodarone 200 MG TAB PO SCH (09:00)
[2020-12-19] MEDS ORDERED: Furosemide 20 MG TAB PO SCH ×2 (10:26→10:45)
[2020-12-19 12:20] LABS: Bilirubin Negative (Negative); Blood, Urine Negative (Negative); Glucose, Urine (Dipstick) Negative (Negative); Ketone, Urine Negative (Negative); Leukocyte Negative (Negative); Nitrite Negative (Negative); Protein, Urine (Dipstick) Negative (Neg-Trace)
[2020-12-19 12:27] LABS: Clarity Clear (Clear)
[2020-12-19 12:36] LABS: Bacteria/HPF None Seen HPF (None Seen); RBC/HPF None Seen HPF (0-3); Squamous Epithelial None Seen HPF (0-3)
[2020-12-19 12:37] LABS: Urine Culture Reflex No No
[2020-12-19] MEDS: Ezetimibe 10 MG TAB PO SCH (20:28)
[2020-12-20] MEDS: Melatonin 3 MG TAB PO PRN (02:18)
[2020-12-20] MEDS ORDERED: Metolazone 5 MG TAB PO SCH (08:30)
[2020-12-20] MEDS: Aspirin 81 mg Enteric Coated Tablet PO SCH (08:45)
[2020-12-20] MEDS: Fish Oil 1,000 MG CAP PO SCH (08:45)
[2020-12-20] MEDS: Apixaban 5 MG TAB PO SCH ×2 (08:45→21:20)
[2020-12-20] MEDS: Ascorbic Acid 500 mg Chewable Tablet PO SCH (08:45)
[2020-12-20] MEDS: Carvedilol 6.25 MG TAB PO SCH ×2 (08:46→21:21)
[2020-12-20] MEDS: Cholecalciferol 1,000 UNITS (25 MCG) TAB PO SCH (08:46)
[2020-12-20] MEDS: Spironolactone 25 MG TAB PO SCH (08:47)
[2020-12-20] MEDS: Pregabalin 50 MG CAP PO SCH ×3 (08:47→21:21)
[2020-12-20] MEDS: Amiodarone 200 MG TAB PO SCH (08:47)
[2020-12-20] MEDS: Furosemide 20 MG TAB PO SCH (08:47)
[2020-12-20] MEDS: Ezetimibe 10 MG TAB PO SCH (21:22)
[2020-12-21] MEDS: Amiodarone 200 MG TAB PO SCH (08:22)
[2020-12-21] MEDS: Spironolactone 25 MG TAB PO SCH (08:22)
[2020-12-21] MEDS: Apixaban 5 MG TAB PO SCH ×2 (08:23→20:43)
[2020-12-21] MEDS: Furosemide 20 MG TAB PO SCH (08:23)
[2020-12-21] MEDS: Fish Oil 1,000 MG CAP PO SCH (08:23)
[2020-12-21] MEDS: Carvedilol 6.25 MG TAB PO SCH ×2 (08:23→20:43)
[2020-12-21] MEDS: Ascorbic Acid 500 mg Chewable Tablet PO SCH (08:23)
[2020-12-21] MEDS: Aspirin 81 mg Enteric Coated Tablet PO SCH (08:23)
[2020-12-21] MEDS: Cholecalciferol 1,000 UNITS (25 MCG) TAB PO SCH (08:23)
[2020-12-21] MEDS: Pregabalin 50 MG CAP PO SCH ×3 (08:24→20:44)
[2020-12-21 08:42] LABS: Anion Gap 11 mmol/L (10-20); BUN (Urea Nitrogen) 19 mg/dL (8.4-25.7); Calc. Creatinine Clearance 62 mL/min (70-130); Carbon Dioxide 33 mmol/L (23-31); Chloride 92 mmol/L (98-107); Glucose 92 mg/dL (83-110); Potassium 3.4 mmol/L (3.5-5.1); Sodium 133 mmol/L (136-145)
[2020-12-21] MEDS ORDERED: Potassium Chloride 20 MEQ TAB PO SCH (09:15)
[2020-12-21] MEDS: Ezetimibe 10 MG TAB PO SCH (20:43)
[2020-12-22 05:51] LABS: Anion Gap 9 mmol/L (10-20); BUN (Urea Nitrogen) 18 mg/dL (8.4-25.7); Calc. Creatinine Clearance 65 mL/min (70-130); Calcium 9.1 mg/dL (7.8-10.44); Carbon Dioxide 31 mmol/L (23-31); Chloride 95 mmol/L (98-107); Glucose 100 mg/dL (83-110); Sodium 131 mmol/L (136-145)
[2020-12-22] MEDS: Ascorbic Acid 500 mg Chewable Tablet PO SCH (09:41)
[2020-12-22] MEDS: Cholecalciferol 1,000 UNITS (25 MCG) TAB PO SCH (09:41)
[2020-12-22] MEDS: Furosemide 20 MG TAB PO SCH (09:41)
[2020-12-22] MEDS: Carvedilol 6.25 MG TAB PO SCH ×2 (09:41→21:24)
[2020-12-22] MEDS: Aspirin 81 mg Enteric Coated Tablet PO SCH (09:41)
[2020-12-22] MEDS: Spironolactone 25 MG TAB PO SCH (09:42)
[2020-12-22] MEDS: Fish Oil 1,000 MG CAP PO SCH (09:43)
[2020-12-22] MEDS: Amiodarone 200 MG TAB PO SCH (09:44)
[2020-12-22] MEDS: Pregabalin 50 MG CAP PO SCH ×3 (09:44→21:25)
[2020-12-22] MEDS: Apixaban 5 MG TAB PO SCH ×2 (09:45→21:24)
[2020-12-22] MEDS: Ezetimibe 10 MG TAB PO SCH (21:24)
[2020-12-23] MEDS: Furosemide 20 MG TAB PO SCH (09:38)
[2020-12-23] MEDS: Spironolactone 25 MG TAB PO SCH (09:38)
[2020-12-23] MEDS: Aspirin 81 mg Enteric Coated Tablet PO SCH (09:38)
[2020-12-23] MEDS: Cholecalciferol 1,000 UNITS (25 MCG) TAB PO SCH (09:39)
[2020-12-23] MEDS: Apixaban 5 MG TAB PO SCH ×2 (09:39→21:25)
[2020-12-23] MEDS: Ascorbic Acid 500 mg Chewable Tablet PO SCH (09:39)
[2020-12-23] MEDS: Carvedilol 6.25 MG TAB PO SCH ×2 (09:39→21:24)
[2020-12-23] MEDS: Amiodarone 200 MG TAB PO SCH (09:39)
[2020-12-23] MEDS: Pregabalin 50 MG CAP PO SCH ×3 (09:40→21:24)
[2020-12-23] MEDS: Fish Oil 1,000 MG CAP PO SCH (09:40)
[2020-12-23] MEDS: Ubidecarenone 50 MG CAP PO SCH (09:40)
[2020-12-23] MEDS ORDERED: Furosemide 20 MG TAB PO SCH (21:00)
[2020-12-23] MEDS: Ezetimibe 10 MG TAB PO SCH (21:26)
[2020-12-23] MEDS: Melatonin 3 MG TAB PO PRN (21:26)
[2020-12-24 05:09] LABS: Anion Gap 10 mmol/L (10-20); BUN (Urea Nitrogen) 16 mg/dL (8.4-25.7); Calc. Creatinine Clearance 62 mL/min (70-130); Calcium 9.4 mg/dL (7.8-10.44); Carbon Dioxide 35 mmol/L (23-31); Chloride 94 mmol/L (98-107); Glucose 84 mg/dL (83-110); Potassium 4.1 mmol/L (3.5-5.1); Sodium 135 mmol/L (136-145)
[2020-12-24] MEDS: Spironolactone 25 MG TAB PO SCH (09:37)
[2020-12-24] MEDS: Amiodarone 200 MG TAB PO SCH (09:38)
[2020-12-24] MEDS: Ascorbic Acid 500 mg Chewable Tablet PO SCH (09:38)
[2020-12-24] MEDS: Cholecalciferol 1,000 UNITS (25 MCG) TAB PO SCH (09:38)
[2020-12-24] MEDS: Apixaban 5 MG TAB PO SCH ×2 (09:38→20:19)
[2020-12-24] MEDS: Pregabalin 50 MG CAP PO SCH ×3 (09:39→20:19)
[2020-12-24] MEDS: Fish Oil 1,000 MG CAP PO SCH (09:39)
[2020-12-24] MEDS: Furosemide 20 MG TAB PO SCH ×2 (09:39→14:42)
[2020-12-24] MEDS: Carvedilol 6.25 MG TAB PO SCH ×2 (09:39→20:20)
[2020-12-24] MEDS: Ubidecarenone 50 MG CAP PO SCH (09:40)
[2020-12-24] MEDS: Aspirin 81 mg Enteric Coated Tablet PO SCH (09:49)
[2020-12-24] MEDS: Ezetimibe 10 MG TAB PO SCH (20:19)
[2020-12-24] MEDS: Melatonin 3 MG TAB PO PRN (20:20)
[2020-12-25 05:27] LABS: Anion Gap 12 mmol/L (10-20); BUN (Urea Nitrogen) 17 mg/dL (8.4-25.7); Calc. Creatinine Clearance 60 mL/min (70-130); Carbon Dioxide 33 mmol/L (23-31); Chloride 93 mmol/L (98-107); Glucose 106 mg/dL (83-110); Sodium 134 mmol/L (136-145)
[2020-12-25] MEDS: Pregabalin 50 MG CAP PO SCH ×2 (08:29→15:20)
[2020-12-25] MEDS: Ascorbic Acid 500 mg Chewable Tablet PO SCH (08:29)
[2020-12-25] MEDS: Fish Oil 1,000 MG CAP PO SCH (08:29)
[2020-12-25] MEDS: Spironolactone 25 MG TAB PO SCH (08:29)
[2020-12-25] MEDS: Ubidecarenone 50 MG CAP PO SCH (08:29)
[2020-12-25] MEDS: Apixaban 5 MG TAB PO SCH (08:29)
[2020-12-25] MEDS: Carvedilol 6.25 MG TAB PO SCH (08:30)
[2020-12-25] MEDS: Furosemide 20 MG TAB PO SCH ×2 (08:30→15:20)
[2020-12-25] MEDS: Amiodarone 200 MG TAB PO SCH (08:30)
[2020-12-25] MEDS: Aspirin 81 mg Enteric Coated Tablet PO SCH (08:30)
[2020-12-25] MEDS: Cholecalciferol 1,000 UNITS (25 MCG) TAB PO SCH (08:30)
[2020-12-25 08:46] VITALS: BMI 24.0
[2020-12-25 15:19] VITALS: BP 147/75; TEMP 97.5
== END 2020-12-25 17:50 | DRG 291 ==
LOC: ERS 16:06 → 2NO 18:09
PROVIDERS: ADMIT Internal Medicine; ATTEND Internal Medicine
PROC: 5A2204Z Restoration of Cardiac Rhythm, Single (ICD-10-PCS; principal; 2020-12-18)
DX: I11.0 Hypertensive heart disease with heart failure (principal); J96.01 Acute respiratory failure with hypoxia; E87.1 Hypo-osmolality and hyponatremia; I48.19 Other persistent atrial fibrillation; I50.23 Acute on chronic systolic (congestive) heart failure; Z20.822 Contact with and (suspected) exposure to COVID-19; E87.6 Hypokalemia; E78.5 Hyperlipidemia, unspecified; E83.42 Hypomagnesemia; K76.1 Chronic passive congestion of liver; I25.10 Atherosclerotic heart disease of native coronary artery without angina pectoris; I45.10 Unspecified right bundle-branch block; I25.5 Ischemic cardiomyopathy; I48.0 Paroxysmal atrial fibrillation; Z77.090 Contact with and (suspected) exposure to asbestos; J92.0 Pleural plaque with presence of asbestos; Z79.01 Long term (current) use of anticoagulants; Z88.2 Allergy status to sulfonamides; Z88.8 Allergy status to other drugs, medicaments and biological substances; Z79.899 Other long term (current) drug therapy; Z79.82 Long term (current) use of aspirin; Z95.5 Presence of coronary angioplasty implant and graft; Z95.0 Presence of cardiac pacemaker
CPT/HCPCS: 36415; 70450; 71045; 80048; 80053; 81001; 83690; 83735; 83880; 84484; 85025; 92960; 93005; 96374; J1940; J2704; J3475; U0002; U0005

== ENCOUNTER 2020-12-28 07:20 | Inpatient (IN) | payer MEDICARE ==
[2020-12-28 16:20] VITALS: BMI 22.9
[2020-12-28] MEDS ORDERED: Nitroglycerin 0.4 MG TAB (25 Tab Bottle) SL PRN (17:58)
[2020-12-28] MEDS ORDERED: Loratadine 10 MG TAB PO PRN (17:58)
[2020-12-28] MEDS ORDERED: Acetaminophen 325 MG TAB PO PRN ×2 (17:58→18:25)
[2020-12-28] MEDS ORDERED: Ondansetron PF 4 MG/2 ML Vial IVP PRN (18:25)
[2020-12-28] MEDS ORDERED: Guaifenesin DM 100-10/5 ML UDCUP PO PRN (18:25)
[2020-12-28] MEDS ORDERED: Labetalol HCl 100 MG/20 ML VIAL SLOW IVP PRN (18:25)
[2020-12-28] MEDS ORDERED: Morphine 2 MG/ML VIAL SLOW IVP PRN (18:25)
[2020-12-28] MEDS ORDERED: hydrALAZINE 20 MG/ML VIAL SLOW IVP PRN (18:25)
[2020-12-28] MEDS ORDERED: HYDROcodone/Acetaminophen 5/325 mg Tablet PO PRN (18:25)
[2020-12-28] MEDS ORDERED: cloNIDine 0.1 MG TAB PO PRN (18:25)
[2020-12-28] MEDS ORDERED: Promethazine HCl 12.5 MG in Sodium Chloride 0.9% 50 ML IVPB PRN (18:25)
[2020-12-28] MEDS ORDERED: Electrolyte Replacement Protocol 1 EACH FS SCH (18:30)
[2020-12-28] MEDS ORDERED: Furosemide 100 MG/10 ML VIAL SLOW IVP SCH (18:30)
[2020-12-28] MEDS ORDERED: Electrolyte Replacement Protocol FS PRN (20:00)
[2020-12-28] MEDS: Pregabalin 50 MG CAP PO SCH (20:28)
[2020-12-28] MEDS: Apixaban 5 MG TAB PO SCH (20:29)
[2020-12-28] MEDS: Carvedilol 6.25 MG TAB PO SCH (20:29)
[2020-12-28] MEDS ORDERED: Ezetimibe 10 MG TAB PO SCH (21:00)
[2020-12-28 23:18] LABS: Bacteria/HPF 4+ HPF (None Seen); Bilirubin Negative (Negative); Blood, Urine Negative (Negative); Clarity Clear (Clear); Glucose, Urine (Dipstick) Normal (Negative); Ketone, Urine Negative (Negative); Leukocyte 250 Leu/uL (Negative); Nitrite Negative (Negative); Protein, Urine (Dipstick) Negative (Neg-Trace); RBC/HPF 0-3 HPF (0-3); Squamous Epithelial 0-3 HPF (0-3); Urobilinogen Normal mg/dL (Less than 2); WBC/HPF 21-50 HPF (0-3); pH, Urine 6.5 (5.0-9.0)
[2020-12-28 23:21] LABS: Urine Culture Reflex Yes Yes
[2020-12-28] MEDS ORDERED: Melatonin 3 MG TAB PO PRN (23:40)
[2020-12-29 05:13] LABS: #Eosinphils 0.1 thou/uL (0.0-0.7); #Monocytes 1.3 thou/uL (0.11-0.59); #Neutrophils 8.3 thou/uL (1.40-6.50); %Basophils 0.1 % (0.0-1.0); %Lymphocytes 9.7 % (21.0-51.0); %Monocytes 11.9 % (0.0-10.0); %Neutrophils 77.4 % (42.0-75.0); Mean Corpuscular HGB CONC 32.2 g/dL (32.0-36.0); Mean Corpuscular Hemoglobin 30.9 pg (27.0-31.0); Mean Corpuscular Volume 95.9 fL (78.0-98.0); Mean Platelet Volume 8.9 fL (7.4-10.4); Platelet Count 184 thou/uL (130-400); RBC Distribution Width 13.8 % (11.5-14.5); Red Blood Cell (RBC) Count 4.53 mill/uL (4.70-6.10); White Blood Cell (WBC) Count 10.7 thou/uL (4.8-10.8)
[2020-12-29] MEDS ORDERED: Magnesium 2 GM/50 ML 2 GM in Premix Bag 1 BAG IVPB SCH (06:30)
[2020-12-29] MEDS: Carvedilol 6.25 MG TAB PO SCH (07:56)
[2020-12-29] MEDS: Pregabalin 50 MG CAP PO SCH ×2 (07:56→15:59)
[2020-12-29] MEDS: Apixaban 5 MG TAB PO SCH (07:56)
[2020-12-29] MEDS ORDERED: Spironolactone 25 MG TAB PO SCH (08:00)
[2020-12-29] MEDS ORDERED: Amiodarone 200 MG TAB PO SCH (09:00)
[2020-12-29] MEDS ORDERED: Furosemide 100 MG/10 ML VIAL SLOW IVP SCH (09:00)
[2020-12-29] MEDS ORDERED: Polyethylene Glycol 3350 17 GM Packet PO SCH (09:00)
[2020-12-29] MEDS ORDERED: Ascorbic Acid 500 mg Chewable Tablet PO SCH (09:00)
[2020-12-29] MEDS ORDERED: Aspirin 81 mg Enteric Coated Tablet PO SCH (09:00)
[2020-12-29 15:48] VITALS: BP 112/56; TEMP 97.7
[2020-12-29] MEDS ORDERED: cefTRIAXone\\ROCEPHIN 1 GM in Sodium Chloride 0.9% 100 ML IVPB SCH (18:00)
== END 2020-12-29 20:54 | disposition hospice, inpatient (51) | DRG 291 ==
LOC: 2NO 15:23
PROVIDERS: ADMIT Internal Medicine; ATTEND Student in an Organized Health Care Education/Training Program
DX: I11.0 Hypertensive heart disease with heart failure (principal); J96.21 Acute and chronic respiratory failure with hypoxia; I48.19 Other persistent atrial fibrillation; R64 Cachexia; I50.23 Acute on chronic systolic (congestive) heart failure; Z51.5 Encounter for palliative care; Z66 Do not resuscitate; I25.10 Atherosclerotic heart disease of native coronary artery without angina pectoris; E78.2 Mixed hyperlipidemia; I08.0 Rheumatic disorders of both mitral and aortic valves; I25.5 Ischemic cardiomyopathy; E78.5 Hyperlipidemia, unspecified; R30.0 Dysuria; I49.5 Sick sinus syndrome; I08.3 Combined rheumatic disorders of mitral, aortic and tricuspid valves; Z88.2 Allergy status to sulfonamides; Z88.8 Allergy status to other drugs, medicaments and biological substances; Z95.5 Presence of coronary angioplasty implant and graft; Z79.899 Other long term (current) drug therapy; Z82.49 Family history of ischemic heart disease and other diseases of the circulatory system; Z87.891 Personal history of nicotine dependence; Z68.23 Body mass index [BMI] 23.0-23.9, adult; Z99.81 Dependence on supplemental oxygen
CPT/HCPCS: 36415; 36416; 81001; 85025; 87077; 87086; 87186; J0696; J1940; J3475; J3490

== ENCOUNTER 2020-12-29 21:03 | Inpatient (IN) | payer OTHER ==
[2020-12-29] MEDS ORDERED: Bisacodyl 10 MG SUPP PR PRN (21:40)
[2020-12-29] MEDS ORDERED: Haloperidol Lactate 5 MG/ML VIAL SLOW IVP PRN (21:45)
[2020-12-29] MEDS ORDERED: diphenhydrAMINE 50 MG/ML VIAL IVP PRN (21:45)
[2020-12-29] MEDS ORDERED: Acetaminophen 650 MG Suppository PR PRN (21:45)
[2020-12-29] MEDS ORDERED: Ondansetron PF 4 MG/2 ML Vial IVP PRN (21:45)
[2020-12-30] MEDS: Pregabalin 50 MG CAP PO SCH (21:14)
[2020-12-30] MEDS: Lorazepam 2 MG/ML VIAL SLOW IVP PRN (21:20)
[2020-12-31] MEDS: Morphine 2 MG/ML VIAL SLOW IVP PRN ×8 (09:00→23:59)
[2020-12-31] MEDS: Pregabalin 50 MG CAP PO SCH ×3 (09:01→19:59)
[2020-12-31] MEDS: Lorazepam 2 MG/ML VIAL SLOW IVP PRN (20:00)
[2021-01-01] MEDS: Lorazepam 2 MG/ML VIAL SLOW IVP PRN (07:29)
[2021-01-01 07:44] VITALS: BP 69/46; TEMP 97.5
[2021-01-01] MEDS ORDERED: Morphine 2 MG/ML VIAL SLOW IVP SCH (08:00)
[2021-01-01] MEDS: Pregabalin 50 MG CAP PO SCH (09:11)
== END 2021-01-01 11:10 | DRG 951 ==
LOC: 2NO 21:03
PROVIDERS: ADMIT Internal Medicine; ATTEND Internal Medicine
DX: Z51.5 Encounter for palliative care (principal)
CPT/HCPCS: J2060; J2270